=== PATIENT | male | born 1965 | race African-American/Black ===

== ENCOUNTER 2018-04-16 22:29 | Emergency (ER) | payer OTHER ==
[~2018-04-16] VITALS: Ht 177.8 cm; Wt 108.9 kg
[~2018-04-16 22:29] MED LIST: CLARINEX5 MG; FLEXERIL PO; HYDROCHLOROTHIA25 M1 PO; HYDROCODON-ACE1 EAC7 PO; NASONEX17 GM NS; NOHOMEMEDICATIONS; NORCO 5-325 TA1 EACH PO; PENICILLIN V P500 MG PO; PENICILLIN VK500 M1 PO; POTASSIUM CHLO10 ME1 PO; TYLENOL W/CODEI1 TA2 PO; ZYRTEC10 MG PO
[2018-04-17] MEDS ORDERED: ACETAMINOPHEN-1 EAC1 PO (01:49)
[2018-04-17] MEDS ORDERED: PREDNISONE 20 M20 MG PO (01:49)
[2018-04-17] MEDS ORDERED: NORFLEX100 MG PO (01:49)
[2018-04-17 02:22] VITALS: BP 154/86
== END 2018-04-17 02:23 | disposition home or self-care (01) ==
LOC: ER 22:29
DX: S46.912A Strain of unspecified muscle, fascia and tendon at shoulder and upper arm level, left arm, initial encounter (principal); M43.6 Torticollis; I10 Essential (primary) hypertension; Z88.6 Allergy status to analgesic agent; X58.XXXA Exposure to other specified factors, initial encounter; Y92.009 Unspecified place in unspecified non-institutional (private) residence as the place of occurrence of the external cause; Y93.89 Activity, other specified; Y99.8 Other external cause status